=== PATIENT | female | born 1985 | race Caucasian/White ===

== ENCOUNTER 2021-04-28 11:05 | Emergency (ER) | payer OTHER ==
[~2021-04-28] VITALS: Ht 160 cm; Wt 61.2 kg
[~2021-04-28 11:05] MED LIST: BENTYL 20MG TAB20 MG PO; CIPRO500 MG PO; REGLAN10 MG PO
[2021-04-28] MEDS ORDERED: PROAIR HFA8.5 GM INH (14:30)
[2021-04-28] MEDS ORDERED: TESSALON PERLE100 MG PO (14:30)
== END 2021-04-28 14:39 | disposition home or self-care (01) ==
LOC: ER1 11:05
DX: U07.1 COVID-19 (principal); J40 Bronchitis, not specified as acute or chronic; E05.90 Thyrotoxicosis, unspecified without thyrotoxic crisis or storm; F17.210 Nicotine dependence, cigarettes, uncomplicated; Z88.0 Allergy status to penicillin
CPT/HCPCS: 71045; 99283; U0002

== ENCOUNTER 2022-01-17 01:50 | Emergency (ER) | payer OTHER ==
[~2022-01-17 01:50] MED LIST changes: +ERYTHROMYCIN O3.5 GM EYERT; +IBUPROFEN600 MG PO; +MACROBID 100 M100 M1 PO; +PROAIR HFA8.5 GM INH; +TESSALON PERLE100 MG PO
[2022-01-17] MEDS ORDERED: ERYTHROMYCIN O3.5 GM OU (04:59)
[2022-01-17] MEDS ORDERED: TOBRADEX EYE DRO5 ML OP (04:59)
[2022-01-17] MEDS ORDERED: VISTARIL 25 MG25 MG PO (04:59)
[2022-01-17] MEDS ORDERED: IMITREX50 MG PO (04:59)
[2022-01-17] MEDS ORDERED: IBUPROFEN600 MG PO (05:01)
== END 2022-01-17 05:03 | disposition home or self-care (01) ==
LOC: ER1 01:50
DX: H10.13 Acute atopic conjunctivitis, bilateral (principal); Z86.69 Personal history of other diseases of the nervous system and sense organs
CPT/HCPCS: 99283